=== PATIENT | female | born 1960 | race Caucasian/White ===

== ENCOUNTER 2017-12-30 19:44 | Emergency (ER) | END 2017-12-30 21:21 | disposition left against medical advice (07) ==

== ENCOUNTER 2017-12-31 14:21 | Emergency (ER) | END 2017-12-31 18:14 | disposition home or self-care (01) ==

== ENCOUNTER 2018-01-19 13:07 | Day surgery (SDC) | END 2018-01-19 18:17 | disposition home or self-care (01) ==

== ENCOUNTER 2019-02-09 20:36 | Emergency (ER) | payer BC ==
[~2019-02-09] VITALS: Ht 152.4 cm; Wt 82.5 kg
[~2019-02-09 20:36] MED LIST: ALBU8.5H8 INH; GABA300C16 PO; HYDR8TAB25 PO; RTPRO NEB; TRAM50TA PO
[2019-02-09 20:54] VITALS: Ht 152.4 cm; Wt 82.5 kg
[2019-02-09] MEDS ORDERED: KETOROLAC 60 MG INJ IM STA (21:53)
[2019-02-09] MEDS ORDERED: morphine 4 MG/ML VIAL IM STA (21:55)
[2019-02-09] MEDS ORDERED: DEXAMETHASONE (1 MG/ML PO SYG) PO ONE (22:00)
[2019-02-09 22:50] VITALS: BP 138/74; PULSE 82; RESP 16
--- NOTE | 2019-02-10 00:19 | ERD ---
ER Documentation Chief Complaint Chief Complaint BODYWIDE PAIN, HX FIBROMYALGIA HPI History of Present Illness: 58-year-old female with past medical history including fibromyalgia coming in today with complaint of full body pain. Patient reports that this exacerbation of pain is very similar to past exacerbations of fibromyalgia. Patient reports being prescribed 8 mg of Dilaudid for p.o. at home. Patient reports worsening of fibromyalgia pain in the past 2 weeks, but reports increased severity of pain last night in which she was unable to sleep. Patient accompanied by female family member. Who is also a patient. Patient denies chest pain, shortness of breath. At home pharmacological/nonpharmacological treatment for symptoms: Dilaudid 8 mg, last dose yesterday. Denies social concerns; Denies recent foreign travel ROS All systems reviewed and are negative except as per history of present illness. Medications Home Meds Active Scripts Albuterol Sulfate* (Proventil* Neb) 0.083% Neb, 2.5 MG NEB Q4 PRN for SHORTNESS OF BREATH, #30 EA Prov:HARPAL CENTENO MD 03/28/16 Albuterol Sulfate* (Proventil* Neb) 0.083% Neb, 2.5 MG NEB Q4 PRN for SHORTNESS OF BREATH, #30 EA Prov:ELIOT HERRIGN DO 03/03/16 Albuterol Sulfate* (Proair HFA*) 8.5 Gm Hfa.aer.ad, 2 PUFF INH Q4, #1 INHALER Prov:ELIOT HERRING DO 03/03/16 Reported Medications Gabapentin* (Gabapentin*) 300 Mg Capsule, 300 MG PO TID, CAP 05/14/15 Hydromorphone Hcl* (Dilaudid*) 8 Mg Tablet, 8 MG PO Q6H PRN for PAIN, TAB 05/14/15 Tramadol Hcl* (Ultram*) 50 Mg Tablet, 50 MG PO QID for PAIN LEVEL 1-5, 0 Refills 04/27/12 Allergies Allergies: Coded Allergies: No Known Drug Allergy (Verified Allergy, Mild, 10/15/15) PMhx/Soc Medical and Surgical Hx: pt denies Surgical Hx History of Surgery: No Anesthesia Reaction: No Hx Neurological Disorder: No Hx Respiratory Disorders: No Hx Cardiac Disorders: No Hx Psychiatric Problems: No Hx Miscellaneous Medical Probl: Yes (FIBROMYALGIA, TENDONITIS ) Hx Alcohol Use: No Hx Substance Use: No Hx Tobacco Use: No Smoking Status: Never smoker FmHx Family History: diabetes, coronary disease Physical Exam Vitals Vital Signs Date Temp Pulse Resp B/P (MAP) Pulse Ox O2 O2 Flow FiO2 Time Delivery Rate 02/09/19 82 16 138/74 96 Room Air 22:50 (95) 02/09/19 98.4 92 18 150/68 98 20:54 (95) Physical Exam Const: No acute distress Head: Atraumatic Eyes: Normal Conjunctiva ENT: Normal External Ears, Nose and Mouth. Neck: Full range of motion. No meningismus. Resp: Clear to auscultation bilaterally Cardio: Regular rate and rhythm, no murmurs Abd: Soft, non tender, non distended. Normal bowel sounds Skin: No petechiae or rashes Back: No midline or flank tenderness Ext: No cyanosis, or edema. Tenderness to palpation over joints of extremities. Tenderness to palpation over hands/fingers. Neur: Awake and alert Psych: Normal Mood and Affect Results 24 hrs Current Medications Medications Dose Sig/Corey Start Time Status Last (Trade) Ordered Route PRN Stop Time Admin Dose Reason Admin 10 mg ONCE ONCE 02/09/19 DC 02/09/19 Dexamethasone PO 22:00 22:09 (Decadron 02/09/19 22:01 Intensol Liquid) Ketorolac 60 mg ONCE STAT 02/09/19 DC 02/09/19 Tromethamine IM 21:53 22:10 (Toradol) 02/09/19 21:55 Morphine 4 mg ONCE STAT 02/09/19 DC 02/09/19 Sulfate IM 21:55 22:10 (morphine) 02/09/19 21:57 Procedures/MDM ED course includes a thorough examination and history. Medications: Ketorolac, dexamethasone, morphine Imaging: -- Labs: -- Low suspicion for life-threatening medical emergency. Otherwise healthy patient presenting with constellation of symptoms likely representing exacerbation of fibromyalgia as characterized by history, physical exam findings. Due to mild elevation in blood pressure possibly like to increase severity of pain; patient does not have history of hypertension. CURES reveals patient receiving hydromorphone from the same prescriber. Verbalized understanding to patient that she will get a one-time dose of morphine we will not prescribe this medication to her again for fibromyalgia exacerbation. She must follow-up with pain management and her primary care doctor. Patient verbalizes understanding of instructions. No respiratory distress, otherwise relatively well appearing and nontoxic. Patient educated on diagnoses, prescriptions, follow-up care, return precautions. Strict return precautions given for worsening condition; questions answered discharge. Disposition for discharge with followup in 2 days with PCP/clinic. Blood Pressure Assessment: Patient's blood pressure was elevated (>120/80) but appears stable without evidence of hypertension emergency or urgency. The patient was counseled about the risks of hypertension and urged to pursue outpatient monitoring and therapy within a week with their primary care physician. Departure Diagnosis: Primary Impression: Pain Additional Impressions: Chronic, continuous use of opioids History of fibromyalgia Finger pain Laterality: bilateral Qualified Codes: M79.645 - Pain in left finger(s); M79.644 - Pain in right finger(s) Condition: Stable Patient Instructions: Chronic Pain, Fibromyalgia Referrals: COMM[facility]ITY CLINICS YOU HAVE RECEIVED A MEDICAL SCREENING EXAM AND THE RESULTS INDICATE THAT YOU DO NOT HAVE A CONDITION THAT REQUIRES URGENT TREATMENT IN THE EMERGENCY DEPARTMENT. FURTHER EVALUATION AND TREATMENT OF YOUR CONDITION CAN WAIT UNTIL YOU ARE SEEN IN YOUR DOCTORS OFFICE WITHIN THE NEXT 1-2 DAYS. IT IS YOUR RESPONSIBILITY TO MAKE AN APPOINTMENT FOR FOL-UP CARE. IF YOU HAVE A PRIMARY DOCTOR --you should call your primary doctor and schedule an appointment IF YOU DO NOT HAVE A PRIMARY DOCTOR YOU CAN CALL OUR PHYSICIAN REFERRAL HOTLINE AT IF YOU CAN NOT AFFORD TO SEE A PHYSICIAN YOU CAN CHOSE FROM THE FOLLOWING [facility] [address] [facility] [address] [facility] [facility] [address] [facility]. [facility] [address] [facility] [address] [facility]. [facility]. [address] [facility] [facility] YOU HAVE RECEIVED A MEDICAL SCREENING EXAM AND THE RESULTS INDICATE THAT YOU DO NOT HAVE A CONDITION THAT REQUIRES URGENT TREATMENT IN THE EMERGENCY DEPARTMENT. FURTHER EVALUATION AND TREATMENT OF YOUR CONDITION CAN WAIT UNTIL YOU ARE SEEN IN YOUR DOCTORS OFFICE WITHIN THE NEXT 1-2 DAYS. IT IS YOUR RESPONSIBILITY TO MAKE AN APPOINTMENT FOR FOLOW-UP CARE. IF YOU HAVE A PRIMARY DOCTOR --you should call your primary doctor and schedule and appointment IF YOU DO NOT HAVE A PRIMARY DOCTOR YOU CAN CALL OUR PHYSICIAN REFERRAL HOTLINE AT . IF YOU CAN NOT AFFORD TO SEE A PHYSICIAN YOU CAN CHOSE FROM THE FOLLOWING [facility] INSTITUTIONS: [facility] [address] [place] [address] [facility] [address] [place] [address] [facility] [address] [place] [address] Additional Instructions: Thank you very much for allowing us to participate in your care. Your health and safety is our top priority at [facility]. It is important to read all discharge instructions and education provided in your discharge packet. Call your primary care doctor TOMORROW for an appointment during the next 2-4 days and bring all the information and medications given during your ER visit. If the symptoms get worse and your provider is unavailable, return to the Emergency Department immediately. STAN VICKERS NP Feb 10, 2019 00:19
== END 2019-02-09 22:51 | disposition home or self-care (01) ==
LOC: FTE 20:36
DX: M79.644 Pain in right finger(s) (principal); F11.90 Opioid use, unspecified, uncomplicated; M79.645 Pain in left finger(s); Z87.39 Personal history of other diseases of the musculoskeletal system and connective tissue
CPT/HCPCS: 96372; J1885; J2270; Z7502; Z7610